=== PATIENT | male | born 1965 | race Caucasian/White ===

== ENCOUNTER 2018-04-06 13:20 | Emergency (ER) | payer BC | END 2018-04-06 13:58 | disposition home or self-care (01) | LOC: EDH 13:20 | DX: M54.12 Radiculopathy, cervical region (principal); Z87.891 Personal history of nicotine dependence ==

== ENCOUNTER → 2018-04-24 | Outpatient (CLI) | payer BC ==
[~2018-04-24] MED LIST: GADODIAMIDE 10 MMOL/20 ML ML IV ONE
== END | disposition home or self-care (01) ==
LOC: RAH 14:40
PROVIDERS: ATTEND Neurological Surgery
DX: M48.02 Spinal stenosis, cervical region (principal); M43.22 Fusion of spine, cervical region; M54.12 Radiculopathy, cervical region
CPT/HCPCS: 72156; A9579

== ENCOUNTER 2018-05-15 07:52 | Emergency (ER) | payer BC ==
[2018-05-15] MEDS ORDERED: DIAZEPAM 5 MG TABLET ONE (08:19)
[2018-05-15] MEDS ORDERED: KETOROLAC TROMETHAMINE 60 MG/2 ML VIAL ONE (08:20)
[2018-05-15] MEDS ORDERED: CYCLOBENZAPRINE HCL 10 MG TABLET ONE (08:20)
[2018-05-15] MEDS ORDERED: MORPHINE SULFATE 4 MG/1ML SYG ONE (09:29)
[2018-05-16] MEDS ORDERED: BUPR100T5 PO (16:11)
[2018-05-16] MEDS ORDERED: VENL37.570 PO (16:11)
== END 2018-05-15 11:11 | disposition home or self-care (01) ==
LOC: EDH 07:52
DX: M54.12 Radiculopathy, cervical region (principal); F32.9 Major depressive disorder, single episode, unspecified; Z98.890 Other specified postprocedural states
CPT/HCPCS: 96372 ×2; 99284; J1885; J2270

== ENCOUNTER → 2018-06-27 | Outpatient (CLI) | payer BC ==
[~2018-06-27] MED LIST changes: +BUPR100T5 PO; -GADODIAMIDE 10 MMOL/20 ML ML IV ONE; +VENL37.570 PO
== END | disposition home or self-care (01) ==
LOC: OIH 10:23
PROVIDERS: ATTEND Neurological Surgery
DX: M47.812 Spondylosis without myelopathy or radiculopathy, cervical region (principal); M43.22 Fusion of spine, cervical region
CPT/HCPCS: 72040

== ENCOUNTER 2019-05-23 14:52 | Emergency (ER) | payer BC ==
[2019-05-23] MEDS ORDERED: IBUPROFEN 600 MG TABLET ONE (15:28)
[2019-05-23 15:34] LABS: RAPID GROUP A STREP NEGATIVE (NEGATIVE)
== END 2019-05-23 15:58 | disposition home or self-care (01) ==
LOC: EDH 14:52
DX: J11.1 Influenza due to unidentified influenza virus with other respiratory manifestations (principal); F32.9 Major depressive disorder, single episode, unspecified
CPT/HCPCS: 87804; 87880

== ENCOUNTER → 2020-02-04 | Outpatient (CLI) | payer OTHER | END | disposition home or self-care (01) | LOC: RAH 12:07 | PROVIDERS: ATTEND Internal Medicine | DX: R09.89 Other specified symptoms and signs involving the circulatory and respiratory systems (principal) | CPT/HCPCS: 71046 ==